=== PATIENT | male | born 1995 | race American Indian/Alaskan Native ===

== ENCOUNTER 2020-06-03 13:45 | Emergency (ER) | payer SELFPAY ==
[2020-06-03 14:33] VITALS: BP 138/79
--- NOTE | 2020-06-03 14:34 | Emergency Department Report ---
ED ENT HPI - General Stated complaint: TOP LFT TOOTH PAIN Source: patient, RN notes reviewed Limitations: No Limitations - History of Present Illness Initial comments: 25-year-old male presents emergency department chief complaint of left upper dental pain over the past 2 to 3 days. He reports part of his tooth broke off and has been having pain and swelling since. He denies any other injuries. He denies any known past medical history, current medication use or known allergies to medications. He denies any associated fever, chills, night sweats, headache, dizziness, blurry vision, nausea, vomiting, diarrhea, chest pain, shortness of breath or any other associated symptoms. MD complaint: tooth pain - Related Data Previous Rx's Medication Instructions Recorded Last Taken Type Penicillin V Potassium 500 mg PO Q6HR #8 tablet 06/03/20 Unknown Rx traMADoL [Ultram 50 MG tab] 50 mg PO Q6HR PRN #40 tablet 06/03/20 Unknown Rx ED Dental HPI - General Stated complaint: TOP LFT TOOTH PAIN - Related Data Previous Rx's Medication Instructions Recorded Last Taken Type Penicillin V Potassium 500 mg PO Q6HR #8 tablet 06/03/20 Unknown Rx traMADoL [Ultram 50 MG tab] 50 mg PO Q6HR PRN #40 tablet 06/03/20 Unknown Rx ED Review of Systems ROS: Stated complaint: TOP LFT TOOTH PAIN Other details as noted in HPI Comment: All other systems reviewed and negative Constitutional: denies: chills, fever Eyes: denies: eye pain, eye discharge, vision change ENT: as per HPI, dental pain. denies: ear pain, throat pain Respiratory: denies: cough, shortness of breath, wheezing Cardiovascular: denies: chest pain, palpitations Endocrine: no symptoms reported Gastrointestinal: denies: abdominal pain, nausea, diarrhea Genitourinary: denies: urgency, dysuria Musculoskeletal: denies: back pain, joint swelling, arthralgia Skin: denies: rash, lesions Neurological: denies: headache, weakness, paresthesias Psychiatric: denies: anxiety, depression Hematological/Lymphatic: denies: easy bleeding, easy bruising ED Past Medical Hx - Medications Home Medications: Home Medications Medication Instructions Recorded Confirmed Last Taken Type Penicillin V Potassium 500 mg PO Q6HR #8 tablet 06/03/20 Unknown Rx traMADoL [Ultram 50 MG tab] 50 mg PO Q6HR PRN #40 tablet 06/03/20 Unknown Rx ED Physical Exam - General General appearance: alert, in no apparent distress - Head Head exam: Present: atraumatic, normocephalic - Eye Eye exam: Present: normal appearance, PERRL, EOMI Pupils: Present: normal accommodation - ENT ENT exam: Present: normal orophraynx (There is a fractured tooth in the left upper second molar with some gingival enlargement. No obvious abscess. No trismus.), mucous membranes moist - Neck Neck exam: Present: normal inspection - Respiratory Respiratory exam: Present: normal lung sounds bilaterally. Absent: respiratory distress - Cardiovascular Cardiovascular Exam: Present: regular rate, normal rhythm. Absent: systolic murmur, diastolic murmur, rubs, gallop - GI/Abdominal GI/Abdominal exam: Present: soft, normal bowel sounds - Rectal Rectal exam: Present: deferred - Extremities Exam Extremities exam: Present: normal inspection - Back Exam Back exam: Present: normal inspection - Neurological Exam Neurological exam: Present: alert, oriented X3 - Psychiatric Psychiatric exam: Present: normal affect, normal mood - Skin Skin exam: Present: warm, dry, intact, normal color. Absent: rash ED Medical Decision Making - Medical Decision Making Patient nontoxic in no acute stress. Vital signs are stable. There is no obvious abscess on his exam but there was some gingival enlargement I am concerned about an infection. I will send him home with antibiotics, pain medication and dental referral. Recommended he return the emerge department if he develops any change or worsening symptoms. He verbalized understanding the diagnosis, treatment plan and follow-up instructions and all his questions were answered. - Differential Diagnosis Dental fracture, dental infection, dental abscess Critical care attestation.: If time is entered above; I have spent that time in minutes in the direct care of this critically ill patient, excluding procedure time. ED Disposition Clinical Impression: Dental infection Broken tooth Qualifiers: Encounter type: initial encounter Fracture type: closed Qualified Code(s): S02.5XXA - Fracture of tooth (traumatic), initial encounter for closed fracture Disposition: TO HOME OR SELFCARE Is pt being admited?: No Condition: Stable Instructions: Dental Abscess Prescriptions: Penicillin V Potassium 500 mg PO Q6HR #8 tablet traMADoL [Ultram 50 MG tab] 50 mg PO Q6HR PRN #40 tablet PRN Reason: Pain Referrals: [facility] [Outside] - 3-5 Days [facility] [Outside] - 3-5 Days [facility] [Provider Group] - 3-5 Days Forms: Work/School Release Form(ED) Time of Disposition: 14:39
== END 2020-06-03 14:51 | disposition home or self-care (01) ==
LOC: ED 13:45
DX: S02.5XXA Fracture of tooth (traumatic), initial encounter for closed fracture (principal); K04.7 Periapical abscess without sinus; Z79.899 Other long term (current) drug therapy; X58.XXXA Exposure to other specified factors, initial encounter; Y93.89 Activity, other specified; Y92.89 Other specified places as the place of occurrence of the external cause; Y99.8 Other external cause status
CPT/HCPCS: 99282